=== PATIENT | male | born 1985 | race Caucasian/White ===

== ENCOUNTER 2017-03-15 10:50 | Emergency (ER) | payer MEDICARE, OTHER ==
[~2017-03-15] VITALS: Ht 180.3 cm; Wt 122.0 kg
[2017-03-15 11:05] VITALS: BP 116/60
--- NOTE | 2017-03-15 11:53 | RAD ---
WRIST 3V RIGHT Clinical Indication: right wrist pain and injury Comparison: None. Findings: No acute fracture or malalignment. The joint spaces are maintained. Bony mineralization is normal for the patient's age. No significant soft tissue abnormality. No radiopaque foreign body. IMPRESSION: No acute fracture or malalignment.
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
== END 2017-03-15 12:10 | disposition home or self-care (01) ==
LOC: ER 10:50
DX: M25.531 Pain in right wrist (principal); J02.9 Acute pharyngitis, unspecified; Z88.8 Allergy status to other drugs, medicaments and biological substances
CPT/HCPCS: 29125; 73110; 99284-25